=== PATIENT | female | born 1940 | race Caucasian/White ===

== ENCOUNTER 2022-08-09 11:00 | Inpatient (IN) | payer MEDICARE, OTHER, SELFPAY ==
[2022-08-09] VITALS (24 sets, daily range): BP systolic 114–149; BP diastolic 75–106; PULSE 98–162; RESP 18–34; TEMP 36.5–37; O2SAT 91–100
--- NOTE | 2022-08-09 11:21 | ECG_ITS ---
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 Measurements Intervals [place] Rate: 153 P: 0 NV: 0 QRS: -60 QRSD: 98 T: 78 QT: 279 QTc: 446 Interpretive Statements ATRIAL FIBRILLATION WITH RAPID VENTRICULAR RESPONSE WITH ABERRANT CONDUCTION OR VENTRICULAR PREMATURE COMPLEXES LEFT AXIS DEVIATION [QRS AXIS < -30] POSSIBLE ANTERIOR MYOCARDIAL INFARCTION , PROBABLY OLD [30 ms Q WAVE IN V3/V4, OR R < 0.2 mV IN V4] No previous ECG available for comparison Electronically Signed On 08-11-2022 8:01:44 CDT by Bong Stephens M.D. [id number]
--- NOTE | 2022-08-09 11:25 | ED_ITS ---
HPI - General Adult General: Chief complaint: Arrhythmia/Palpitations Stated complaint: low hr, possible uti, sent from [facility] Time Seen by Provider: 08/09/22 11:25 History of Present Illness: Ms. Hahn is a 82-year-old lady with significant past medical history of hypertension, atrial fibrillation on anticoagulation, presenting to the emergency department for evaluation of abnormal heart rate. She notes increased fatigue and generalized weakness for the past few weeks, she denies chest pain or shortness of breath. She thought maybe she had a urinary tract infection given hesitancy and urgency as well as frequency however upon presenting to outside clinic she was found to have hypotension and A-fib with RVR and referred to the ER for further evaluation. She does endorse that she held her metoprolol for 2 days because blood pressure was low and she felt weak and dizzy. Otherwise she has been compliant with her medication regimen including Eliquis. No other specific changes in health, exacerbating, or alleviating factors identified. Onset (ago): week(s) Severity: severe Associated symptoms: Reports palpitations and weakness Review of Systems General: Reports: 10 or more systems reviewed and unremarkable except in HPI and below Card: Reports: palpitations PFS ED PFSH: Medical History Afib REFUGIO (acute kidney injury) Atrial fibrillation with rapid ventricular response Complicated UTI (urinary tract infection) Dementia Hypertension Hypothyroidism Physical Exam Const: COMMON NORMALS: alert GENERAL APPEARANCE: cooperative and well developed HENMT: COMMON NORMALS: normocephalic and atraumatic HEAD & SCALP: normocephalic and atraumatic Eye: COMMON NORMALS: conjunctivae normal CONJUNCTIVA: Yes conjunctivae norm al SCLERA: sclerae normal Neck/C-Spine: COMMON NORMALS: supple GENERAL: Yes trachea midline Resp: COMMON NORMALS: normal respiratory effort and clear to auscultation bilaterally EFFORT & INSPECTION: Yes able to speak in complete sentences AUSCULTATION: clear to auscultation bilaterally Cardio: RATE: tachycardic RHYTHM: abnormal rhythm GI: COMMON NORMALS: Soft to palpation PALPATION: Yes Soft to palpation, Yes Tenderness to palpation present (GI), No Guarding due to palpation present (GI) and No Rigid due to palpation Extremity: GENERAL: Yes normal exam except as noted and No edema Neuro: COMMON NORMALS: moves all extremities SENSORIUM/ORIENTATION: Yes alert and No Orientation impaired Psych: COMMON NORMALS: mental status grossly normal and Normal thought process present THOUGHT PROCESS: Normal thought process present Course Vital Signs: Vital signs: Vital Signs Temperature 97.8 F 08/11/22 12:00 Pulse Rate 93 08/11/22 12:00 Respiratory Rate 22 H 08/11/22 12:00 Blood Pressure 121/87 08/11/22 12:00 Pulse Oximetry 96 08/11/22 12:00 Oxygen Delivery Me thod Room Air 08/11/22 12:00 MDM - General Adult Medical Decision Making 82-year-old lady presenting for abnormal heart rate and low blood pressure. Patient found to be in atrial fibrillation with rapid ventricular response, no STEMI, left axis deviation present. She is nontoxic in appearance and blood pressure is adequate. Labs notable for minimal leukocytosis, normal hemoglobin and platelet count. Metabolic panel with elevated creatinine and evidence of dehydration. Negative range 2-hour delta troponin. BNP is mildly elevated. Hematuria and likely urinary tract infection present. Chest x-ray with no lobar consolidation or pneumothorax. CT abdomen and pelvis notable for cystitis. Patient initially treated with IV fluid bolus and subsequently metoprolol with improvement in heart rate. She was treated with antibiotics. The results of ED evaluation were discussed with the patient including plan for admission due to requirement for level of care not available if discharged to prevent significant worsening/deterioration. Patient agreeable with plan. Discussed with hospitalist service who was agreeable to admit patient. Medical Records I reviewed the patient's medical records. Lab Data I reviewed the patient's lab results. 08/11/22 02:06 08/11/22 02:06 Radiology Impressions Chest X-Ray 08/09/22 11:26 IMPRESSION: Unremarkable frontal portable chest x-ray. Abdomen/Pelvis CT 08/09/22 12:43 IMPRESSION: There is advanced bladder cystitis.Clinical correlation is advised. COMMENTS: Consistent with the [employer]'s Incidental Findings Committee white paper (J Am Gavino Radiol 2018): Any incidental renal lesion less than 1 cm or classified as too small to characterize, or any incidental cystic renal lesion characterized as simple-appearing, is likely benign. No follow-up imaging is recommended for these lesions per consensus recommendations based on imaging criteria. Laboratory Results WBC 10.5 10^3/uL (4.0-10.0) H 08/09/22 11:30 RBC 4.81 10^6/uL (4.1-5.3) 08/09/22 11:30 Hgb 14.8 g/dL (11.5-15.3) 08/09/22 11:30 Hct 46.0 % (37.0-47.0) 08/09/22 11:30 MCV 95.6 fl (81-99) 08/09/22 11:30 MCH 30.8 pg (28.0-34.0) 08/09/22 11:30 MCHC 32.2 g/dL (30.0-36.0) 08/09/22 11:30 RDW 14.8 % (12.1-15.1) 08/09/22 11:30 Plt Count 294 10^3/cmm (130-400) 08/09/22 11:30 MPV 10.0 fL (7.4-10.4) 08/09/22 11:30 Neut % (Auto) 80.0 % 08/09/22 11:30 Lymph % (Auto) 12.4 % 08/09/22 11:30 [place] % (Auto) 6.8 % 08/09/22 11:30 Eos % (Auto) 0.1 % 08/09/22 11:30 Baso % (Auto) 0.2 % 08/09/22 11:30 Neut # (Auto) 8.36 10^3/uL (1.8-7.7) H 08/09/22 11:30 Lymph # (Auto) 1.3 10^3/uL (0.8-4.8) 08/09/22 11:30 [place] # (Auto) 0.7 10^3/uL (0.2-0.9) 08/09/22 11:30 Eos # (Auto) 0.0 10^3/uL (0.0-0.8) 08/09/22 11:30 Baso # (Auto) 0.0 10^3/uL (0.0-0.1) 08/09/22 11:30 Nucleated RBC % (auto) 0 % 08/09/22 11:30 Nucleated RBCs # 0.0 /100WBC 08/09/22 11:30 Sodium 139 mmol/L (136-145) 08/09/22 11:30 Potassium 4.7 mmol/L (3.5-5.1) 08/09/22 11:30 Chloride 100 mmol/L (98-107) 08/09/22 11:30 Carbon Dioxide 23 mmol/L (22-29) 08/09/22 11:30 Anion Gap 20.7 (5-19) H 08/09/22 11:30 BUN 26 mg/dL (8-23) H 08/09/22 11:30 Creatinine 1.5 mg/dL (0.5-0.9) H 08/09/22 11:30 GFR Calculation Not Reportable 08/09/22 11:30 Glucose 168 mg/dL (65-115) H 08/09/22 11:30 Calculated Osmolality 297 mOsm/kg (285-295) H 08/09/22 11:30 Lactic Acid 2.2 mmol/L (0.5-2.2) 08/09/22 11:30 Lactic Acid (Sepsis) 1.6 mmol/L (0.5-2.2) 08/09/22 13:43 Calcium 9.8 mg/dL (8.5-10.5) 08/09/22 11:30 Magnesium 2.2 mg/dL (1.7-2.3) 08/09/22 11:30 Total Bilirubin 0.7 mg/dL (0.15-1.2) 08/09/22 11:30 AST 24 U/L (0-32) 08/09/22 11:30 ALT 19 U/L (0-33) 08/09/22 11:30 Alkaline Phosphatase 88 U/L (35-105) 08/09/22 11:30 Troponin T Baseline 38 ng/L (0-10) H 08/09/22 11:30 Troponin T 120 Minute 32.18 ng/L (0-10) H 08/09/22 13:41 Delta Troponin T -5.82 ABS# (0-10) L 08/09/22 13:41 NT-Pro-B Natriuret Pep 2080 pg/mL (0-450) H 08/09/22 11:30 Total Protein 7.6 g/dL (6.6-8.7) 08/09/22 11:30 Albumin 4.2 g/dL (3.5-5.2) 08/09/22 11:30 Globulin 3.4 g/dL (1.3-4.6) 08/09/22 11:30 Procalcitonin 0.06 ng/mL (0-0.5) 08/09/22 11:30 TSH 1.86 uIU/mL (0.27-4.20) 08/09/22 11:30 Urine Color Brown (Yellow) 08/09/22 12:20 Urine Appearance Cloudy (CLEAR) A 08/09/22 12:20 Urine pH 9 (5-7) H 08/09/22 12:20 Ur Specific [place] 1.015 (1.005-1.030) 08/09/22 12:20 Urine Protein 2+ (Negative) H 08/09/22 12:20 Urine Glucose (UA) Norm (Normal) 08/09/22 12:20 Urine Ketones 1+ (Negative) H 08/09/22 12:20 Urine Blood 3+ (Negative) H 08/09/22 12:20 Urine Nitrate Negative (Negative) 08/09/22 12:20 Urine Bilirubin Neg (Negative) 08/09/22 12:20 Prot Sulfosalicylic Acd Positive (Negative) 08/09/22 12:20 Urine Urobilinogen Norm mg/dL (Negative) 08/09/22 12:20 Ur Leukocyte Esterase 2+ (Negative) H 08/09/22 12:20 Urine RBC Too numerous to cnt /hpf (0-2) H 08/09/22 12:20 Urine WBC 0-4 /hpf (0-5) H 08/09/22 12:20 Ur Squamous Epith Cells 0-4 /hpf (0-5) H 08/09/22 12:20 Triple Phos Crystals 0-4 /hpf H 08/09/22 12:20 Amorphous Sediment Not Reportable 08/09/22 12:20 Urine Bacteria 4+ /hpf (NONE) H 08/09/22 12:20 Ur Random Sodium 97 mmol/L 08/09/22 12:20 Ur Random Potassium 33 mmol/L 08/09/22 12:20 Ur Random Chloride 95 mmol/L 08/09/22 12:20 Urine Creatinine 88 mg/dL (28-217) 08/09/22 12:20 Discharge Plan Discharge Patient Disposition: Placed in Observation Admit Provider: Regulo Meraz Clinical Impression: Complicated UTI (urinary tract infection), REFUGIO (acute kidney injury), Atrial fibrillation with rapid ventricular response Coding Level of Care Code ED Case Management Director for [facility] Sharif
--- NOTE | 2022-08-09 11:26 | XR_ITS ---
WS: [id number] EXAMINATION: XR chest 1V portable [id number] REASON FOR EXAM: afib rvr COMPARISON: None available. ORDER DATE: 08/09/2022 11:26 AM TECHNIQUE: A single, portable frontal chest x-ray was obtained. X-RAY FINDINGS: The lungs are clear. Pleural spaces are clear. No pleural effusions or pneumothorax. Cardiomediastinal silhouette is normal except for atherosclerotic aortic change. No evidence for pulm onary edema. Soft tissue and osseous structures are unremarkable. No tubes or lines are present. XR/XR chest 1V portable [id number] IMPRESSION: Unremarkable frontal portable chest x-ray.
[2022-08-09] MEDS: sodium chloride 0.9% 500 ML IV (11:35)
[2022-08-09 11:36] LABS: Basophils % 0.2 %; Eosinophils % 0.1 %; Hemoglobin 14.8 g/dL (11.5-15.3); Lymphocytes # 1.3 10^3/uL (0.8-4.8); Lymphocytes % 12.4 %; Mean Corpuscular HGB Conc 32.2 g/dL (30.0-36.0); Mean Corpuscular Hemoglobin 30.8 pg (28.0-34.0); Mean Corpuscular Volume 95.6 fl (81-99); Monocytes # 0.7 10^3/uL (0.2-0.9); Monocytes % 6.8 %; Neutrophils # 8.36 10^3/uL (1.8-7.7); Nucleated Red Blood Cells % 0 %; Platelet Count 294 10^3/cmm (130-400); Red Blood Count 4.81 10^6/uL (4.1-5.3); Red Cell Distribution Width 14.8 % (12.1-15.1); White Blood Count 10.5 10^3/uL (4.0-10.0)
--- NOTE | 2022-08-09 11:40 | PC.NURSE ---
Pt hooked up to continuous bedside cardiac monitoring.
[2022-08-09 12:04] LABS: Troponin(5th) Baseline 38 ng/L (0-10)
[2022-08-09 12:06] LABS: Lactic Sepsis W/Reflex 2.2 mmol/L (0.5-2.2)
[2022-08-09 12:12] LABS: Alanine Aminotransferase 19 U/L (0-33); Albumin Level 4.2 g/dL (3.5-5.2); Alkaline Phosphatase 88 U/L (35-105); Anion Gap 20.7 (5-19); Aspartate Amino Transferase 24 U/L (0-32); Blood Urea Nitrogen 26 mg/dL (8-23); Calcium 9.8 mg/dL (8.5-10.5); Carbon Dioxide 23 mmol/L (22-29); Chloride 100 mmol/L (98-107); Globulin 3.4 g/dL (1.3-4.6); Glucose 168 mg/dL (65-115); Magnesium 2.2 mg/dL (1.7-2.3); NT Pro B Type Natriuretic Pept 2080 pg/mL (0-450); Osmolality Calculated 297 mOsm/kg (285-295); Potassium 4.7 mmol/L (3.5-5.1); Reflex Lactate Order REFLEX LACTIC ORDERD; Sodium 139 mmol/L (136-145); Thyroid Stimulating Hormone 1.86 uIU/mL (0.27-4.20); Total Bilirubin 0.7 mg/dL (0.15-1.2); Total Protein 7.6 g/dL (6.6-8.7)
[2022-08-09] MEDS: sodium chloride 0.9% 500 ML 999 ML IV (12:31)
[2022-08-09] MEDS: metoprolol tartrate 1 mg/1 mL SDV 5 mL 5 MG IVP (12:33)
[2022-08-09 12:41] LABS: Add Urine Culture? Yes; Add Urine Microscopic? YES; Bacteria Urine 4+ /hpf; Bilirubin Urine Neg (Negative); Blood Urine 3+ (Negative); Glucose Urine UA Norm (Normal); Ketones Urine 1+ (Negative); Leukocyte Esterase Urine 2+ (Negative); Nitrate Urine Negative (Negative); Protein Urine 2+ (Negative); RBC Urine TOO NUMEROUS TO CNT /hpf (0-2); Specific Gravity, Urine 1.015 (1.005-1.030); Squamous Epithelial Cell Urine 0-4 /hpf (0-5); Sulfosalicylic Acid Urine Positive (Negative); Triple Phosphate Crystal Urine 0-4 /hpf; Urine Appearance Cloudy (CLEAR); Urine Color Brown (Yellow); Urobilinogen Urine Norm (Negative); WBC Urine 0-4 /hpf (0-5); pH Urine 9 (5-7)
--- NOTE | 2022-08-09 12:43 | CTR_ITS ---
PROCEDURE INFORMATION: Exam: CT Abdomen And Pelvis Without Contrast Exam date and time: 08/09/2022 1:05 PM Age: 82 years old Clinical indication: Other: Hematuria; Additional info: Possible tyson, hematuria, ? obstructive nephropathy TECHNIQUE: Imaging protocol: Computed tomography of the abdomen and pelvis without contrast. Radiation optimization: All CT scans at this facility use at least one of these dose optimization techniques: automated exposure control; mA and/or kV adjustment per patient size (includes targeted exams where dose is matched to clinical indication); or iterative reconstruction. REPORTING DATA: Count of CT and Cardiac NM exams in prior 12 months: This patient has received 0 known CTs and 0 known cardiac nuclear medicine studies in the 12 months prior to the current study. COMPARISON: CR XR chest 1V portable [id number] 08/09/2022 11:32 AM RADIATION DOSE METRICS: Total DLP (mGy-cm): 705.91 FINDINGS: Liver: Normal. No mass. Gallbladder and bile ducts: Normal. No calcified stones. No ductal dilation. Pancreas: Normal. No ductal dilation. Spleen: Normal. No splenomegaly. Adrenal glands: There is thickening of the left adrenal gland. Kidneys and ureters: There are bilateral renal cysts. No renal calcification or hydronephrosis. Stomach and bowel: Unremarkable. No obstruction. No mucosal thickening. Appendix: No evidence of appendicitis. Intraperitoneal space: Unremarkable. No free air. No significant fluid collection. Vasculature: Unremarkable. No abdominal aortic aneurysm. Lymph nodes: Unremarkable. No enlarged lymph nodes. Urinary bladder: There is bladder wall thickening with associated inflammatory change. There is an air-fluid level in the bladder. No mass or calcification or bladder wall emphysema. Reproductive: Unremarkable as visualized. Bones/joints: Degenerative change is identified in the spine. There is no evidence for acute fracture or malalignment. Soft tissues: Unremarkable. CT/CT kidney stone [id number] IMPRESSION: There is advanced bladder cystitis.Clinical correlation is advised. COMMENTS: Consistent with the [employer]'s Incidental Findings Committee white paper (J Am Gavino Radiol 2018): Any incidental renal lesion less than 1 cm or classified as too small to characterize, or any incidental cystic renal lesion characterized as simple-appearing, is likely benign. No follow-up imaging is recommended for these lesions per consensus recommendations based on imaging criteria.
[2022-08-09 14:13] LABS: Troponin 5 2HR 32.18 ng/L (0-10)
[2022-08-09 14:14] LABS: Lactic Acid level (Lactate) 1.6 mmol/L (0.5-2.2)
[2022-08-09 14:14] LABS: Troponin 5 2HR Delta -5.82 ABS# (0-10)
[2022-08-09] MEDS: piperacillin-tazobactam 3.375 GM in sodium chloride 0.9% (plus) 50 ML IV (15:40)
--- NOTE | 2022-08-09 15:54 | PC.NURSE ---
Report called to SAPPHIRE Portillo at 1553.
--- NOTE | 2022-08-09 16:06 | PM.HP ---
Providers/Chief Complaint Admitting Physician: Regulo Meraz MD Chief Complaint: low hr, possible uti, sent from [facility] History of Present Illness Britney Hahn is a 82 year old female with past medical history of hypothyroidism, hypertension, A-fib with chronic anticoagulation with Eliquis, dementia who recently moved to this area from outside town. Patient states she has been having some hesitancy along with scant urine for last 2 to 3 days. She feels dehydrated. Last night when she was checking her vitals her blood pressure machine showed a reading of 55 systolic and she did not take her oral meds. She did not take her medications including metoprolol today morning as well. She denies of any nausea vomiting, headache. 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 In the ER she was found to be in A-fib with RVR and given 5 mg of IV metoprolol after which her heart rate settled to low 100s. On examination laying comfortably in bed, dehydrated Review of Systems General: Reports: 10 or more systems reviewed and unremarkable except in HPI and below Const: Denies: fever(s), chills or body aches Eyes: Denies: change in vision, blurry vision or photophobia ENMT: Reports: hoarseness; Denies: throat pain, enlarged tonsils, odynophagia or nasal congestion Card: Denies: chest pain, palpitations, irregular heart rhythm, edema, swelling of feet/ankles, lightheadedness, pre-syncope, dyspnea on exertion or orthopnea Resp: Denies: dyspnea, productive cough, non-productive cough, wheezing, stridor, pain on inspiration, change in phlegm color, hemoptysis or chest congestion GI: Denies: abdominal pain, nausea, vomiting, hematemesis, coffee ground emesis, dysphagia, heartburn, diarrhea, constipation, GI cramping, change in stool character, hematochezia or melena : Denies: flank pain, difficulty voiding, dysuria, urinary frequency, urinary urgency, urinary hesitancy or hematuria Musc: Denies: neck pain, back pain, extremity pain, joint swelling, joint warmth or deformity Neuro: Denies: headache(s), numbness in extremities, weakness in extremities, sensory changes, difficulty walking, frequent falls, dizziness, vertigo, behavioral changes, Slurred speech present or seizure-like activity Psych: Denies: anxiety, depression, suicidal ideation or homicidal ideation Endo: Denies: polyuria, polydipsia, tired all the time, cold intolerance or hot flashes [place]/Lymph: Denies: easy bruising or easy bleeding Medications/Allergies Home Medications Medication Instructions Recorded Confirmed Last Taken Type apixaban 5 mg tablet (Eliquis) 5 mg PO BID 08/09/22 08/09/22 08/08/22 History atorvastatin 20 mg tablet 20 mg PO DAILY 08/09/22 08/09/22 08/08/22 History calcium carbonate 600 mg calcium 600 mg PO BEDTIME 08/09/22 08/09/22 08/08/22 History (1,500 mg) tablet (Calcium) cranberry 500 mg capsule 500 mg PO QAM 08/09/22 08/09/22 08/08/22 History docusate sodium 100 mg capsule 100 mg PO QPM 08/09/22 08/09/22 08/08/22 History (Colace) furosemide 40 mg tablet 40 mg PO QAM 08/09/22 08/09/22 08/08/22 History glucosamine HCl 1,500 mg tablet 1,500 mg PO QAM 08/09/22 08/09/22 08/08/22 History levothyroxine 125 mcg tablet 125 mcg PO QAM 08/09/22 08/09/22 08/08/22 History losartan 25 mg tablet 25 mg PO BEDTIME 08/09/22 08/09/22 08/07/22 History magnesium oxide 400 mg PO QPM 08/09/22 08/09/22 08/08/22 History metoprolol tartrate 50 mg tablet 50 mg PO BID 08/09/22 08/09/22 08/08/22 History multivitamin 1 tab PO QAM 08/09/22 08/09/22 08/08/22 History Allergies Allergy/AdvReac Type Severity Reaction Status Date / Time azithromycin Allergy Unknown Verified 08/09/22 12:53 ciprofloxacin [From Cipro] Allergy algy-unknow Verified 08/09/22 09:33 n PFSH Acute PFSH: Medical History Afib Dementia Hypertension Vitals/I&O/Wt Last Vital Signs Temp 98.0 F 08/09/22 11:20 Pulse 108 H 08/09/22 15:30 Resp 23 H 08/09/22 13:15 BP 131/95 08/09/22 15:30 Pulse Ox 97 08/09/22 15:30 O2 Del Method Room Air 08/09/22 12:02 08/09/22 08/09/22 08/09/22 06:59 14:59 22:59 Intake Total 1000 / 1000 Balance 1000 / 1000 Weight last 48 hrs Weight 90.718 kg Physical Exam Narrative: General: No acute distress, pleasant, AO x3, dehydrated HEENT: PERRLA, pupils bilaterally equal and reactive, pallors not present Chest: Normal vesicular breath sounds, no added sounds, equal good air entry bilaterally CVS: S1-S2 irregularly irregular, no murmurs, no tachycardia, no gallops, no rubs Abdomen: Soft, nontender, no organomegaly, bowel sounds present Neuro: No focal deficits, no facial deformity, AO x3, power 5/5 in all limbs Data 08/09/22 11:30 08/09/22 11:30 Micro: Microbiology 08/09/22 11:47 Blood Culture - Preliminary Blood SPECIMEN COLLECTED 08/09/22 11:40 Blood Culture - Preliminary Blood SPECIMEN COLLECTED A&P Assessment and plan (1) Atrial fibrillation with rapid ventricular response: Chronic. With mildly RVR. Most likely in setting of possible UTI versus dehydration. Normal saline at 75 cc/h for 1 bag. Continue with home dose of Eliquis 5 mg twice daily. Increase home dose of metoprolol to 75 mg twice daily. Check echocardiogram. Will reassess after hydration for additional further medications. (2) REFUGIO (acute kidney injury): REFUGIO versus CKD. Do not have baseline creatinine. Check urine lites, urine creatinine, eosinophils. Urinalysis. CT abdomen pelvis done in the ER negative for urinary obstruction. Monitor BMP daily. IV hydration as above. Medical reconstruction done for nephrotoxic drugs. (3) Complicated UTI (urinary tract infection): With cystitis changes seen in the CT scan abdomen pelvis. Check blood culture, urine culture. IV ceftriaxone 1 g daily (4) Hypothyroidism: Continue with home dose of levothyroxine. Check TSH. (5) Hypertension: Goal blood pressure less than 140/90 mmHg. Continue with home metoprolol at a higher dose. Hold off on losartan given possible REFUGIO. (6) Dementia: Plan Full code. Cardiac diet. Eliquis will suffice as DVT prophylaxis. Protonix OPD prophylaxis. Attestations Medical Necessity Statement*: Admission for more than 2 midnights for management of A-fib with RVR in setting of dehydration and UTI along with REFUGIO Diagnoses Atrial fibrillation with rapid ventricular response I48.91 REFUGIO (acute kidney injury) N17.9 Complicated UTI (urinary tract infection) N39.0 Hypothyroidism E03.9 Hypertension I10 Dementia F03.90
[2022-08-09 16:39] LABS: Procalcitonin 0.06 ng/mL (0-0.5)
[2022-08-09] MEDS: metoprolol tartrate 50 mg Tablet 75 MG PO (16:49)
[2022-08-09] MEDS: apixaban 5 mg Tablet PO (16:51)
[2022-08-09] MEDS: docusate sodium 100 mg Capsule PO (16:51)
[2022-08-09] MEDS: sodium chloride 0.9% 1,000 ML 75 ML IV (16:52)
[2022-08-09] MEDS: cefTRIAXone 1,000 MG in sodium chloride 0.9% (plus) 50 ML 100 MG IV (16:52)
[2022-08-09 17:09] LABS: Potassium, Radom Urine 33 mmol/L; Urine Creatinine 88 mg/dL (28-217); Urine Random Chloride 95 mmol/L; Urine Random Sodium 97 mmol/L
--- NOTE | 2022-08-09 18:06 | ECG_ITS ---
[facility] Test Date: 2022-08-09 Pat Name: Britney Hahn Department: Room: 112 Gender: Female Can Carrier: : 1940 Requested By: Mil Houston Order Number: [id number] Luma MD: Bong Stephens M.D. Measurements Intervals [place] Rate: 100 P: 0 RI: 0 QRS: -57 QRSD: 89 T: 41 QT: 351 QTc: 453 Interpretive Statements ATRIAL FIBRILLATION WITH RAPID VENTRICULAR RESPONSE LEFT AXIS DEVIATION [QRS AXIS < -30] POSSIBLE ANTERIOR MYOCARDIAL INFARCTION , PROBABLY OLD [30 ms Q WAVE IN V3/V4, OR R < 0.2 mV IN V4] Compared to ECG 08/09/2022 11:21:47 Aberrant conduction of supraventricular beat(s) no longer present Ventricular premature complex(es) no longer present Myocardial infarct finding still present Electronically Signed On 08-11-2022 8:03:34 CDT by Bong Stephens M.D. [id number]
[2022-08-09 18:13] LABS: Troponin 5 6HR 34.15 ng/L (0-10)
[2022-08-09 18:30] LABS: Troponin 5 6HR Delta -3.85 ng/L (0-12)
[2022-08-09 20:17] LABS: Eosinophil Urine No Eosinophils Seen
[2022-08-09 20:21] LABS: Urine Eosinophil Count 0 (0-0)
[2022-08-10] VITALS (150 sets, daily range): BP systolic 122–134; BP diastolic 86–102; PULSE 81–156; RESP 16–29; TEMP 36.3–36.9; O2SAT 83–99
[2022-08-10 03:58] LABS: Basophils % 0.3 %; Eosinophils # 0.1 10^3/uL (0.0-0.8); Eosinophils % 0.6 %; Hematocrit 43.7 % (37.0-47.0); Lymphocytes # 1.7 10^3/uL (0.8-4.8); Lymphocytes % 17.2 %; Mean Corpuscular Volume 96.9 fl (81-99); Mean Platelet Volume 9.7 fL (7.4-10.4); Monocytes # 0.8 10^3/uL (0.2-0.9); Monocytes % 8.3 %; Neutrophils # 7.18 10^3/uL (1.8-7.7); Neutrophils % 73.3 %; Nucleated Red Blood Cells % 0 %; Platelet Count 269 10^3/cmm (130-400); Red Blood Count 4.51 10^6/uL (4.1-5.3); Red Cell Distribution Width 14.8 % (12.1-15.1); White Blood Count 9.8 10^3/uL (4.0-10.0)
[2022-08-10 04:11] LABS: Estmated Average Glucose 143; Hemoglobin A1C 6.6 % (4.0-6.0)
[2022-08-10 04:17] LABS: Alanine Aminotransferase 16 U/L (0-33); Albumin Level 3.9 g/dL (3.5-5.2); Alkaline Phosphatase 72 U/L (35-105); Anion Gap 14.7 (5-19); Aspartate Amino Transferase 18 U/L (0-32); Blood Urea Nitrogen 23 mg/dL (8-23); Calcium 8.8 mg/dL (8.5-10.5); Carbon Dioxide 23 mmol/L (22-29); Chloride 107 mmol/L (98-107); Glucose 125 mg/dL (65-115); Magnesium 2.1 mg/dL (1.7-2.3); Osmolality Calculated 295 mOsm/kg (285-295); Phosphorus 3.4 mg/dL (2.5-4.5); Potassium 4.7 mmol/L (3.5-5.1); Sodium 140 mmol/L (136-145); Total Bilirubin 0.6 mg/dL (0.15-1.2); Total Protein 6.9 g/dL (6.6-8.7)
[2022-08-10 04:19] LABS: Chol HDL Ratio 2.78 mg/dL (0.0-4.40); Cholesterol 128 mg/dL (0-200); HDL Cholesterol 46 mg/dL (60-100); LDL Cholesterol Calculated 69 mg/dL (50-129); Triglycerides 66 mg/dL (0-150)
[2022-08-10] MEDS: sodium chloride 0.9% 1,000 ML 75 ML IV ×2 (04:58→18:36)
[2022-08-10] MEDS: levothyroxine 125 mcg Tablet PO (04:59)
[2022-08-10] MEDS: apixaban 5 mg Tablet PO ×2 (09:02→18:00)
[2022-08-10] MEDS: metoprolol tartrate 50 mg Tablet 75 MG PO ×2 (09:03→18:00)
[2022-08-10] MEDS: pantoprazole DR 40 mg Tablet PO (09:04)
[2022-08-10] MEDS: docusate sodium 100 mg Capsule PO ×2 (09:04→18:00)
--- NOTE | 2022-08-10 14:49 | PC.NURSE ---
Patient's urine remains bright red.
--- NOTE | 2022-08-10 17:37 | PM.PN ---
Subjective Subjective: Patient reports she is feeling a little bit better. She has not been out of bed except for restroom. Remains in a-fib with RVR. Reports intermittent dizziness. Denies chest pain, fever, or chills. Medications: Reviewed: Yes Vitals/I&O/Wt Last Vital Signs Temp 98.3 F 08/10/22 12:00 Pulse 101 H 08/10/22 14:38 Resp 23 H 08/10/22 12:00 BP 122/86 08/10/22 12:00 Pulse Ox 97 08/10/22 12:00 O2 Del Method Room Air 08/10/22 12:00 08/10/22 08/10/22 08/10/22 06:59 14:59 22:59 Intake Total 1007.5 / 2307.5 240 / 240 Output Total 400 / 900 Balance 607.5 / 1407.5 240 / 240 Weight last 48 hrs Weight 92.306 kg Weight 90.718 kg Physical Exam Narrative: General: Patient is awake and alert. Head: Normocephalic. Atraumatic. EOM intact. Neck: No JVD. Cardiovascular: No gallops. No murmurs. Tachycardic. Irregular rhythm. Lungs: Clear to auscultation, no use of accessory muscles, no crackles or wheezes. Skin: No jaundice. No rashes. Abdomen: Soft. Not distended. Normal bowel sounds. Extremities: No cyanosis or clubbing. Musculoskeletal: Normal muscular development. Neurological: No myoclonus. Moves all 4 extremities. Data 08/10/22 03:45 08/10/22 03:45 Micro: Microbiology 08/09/22 11:47 Blood Culture - Preliminary Blood NEGATIVE TO DATE 08/09/22 11:40 Blood Culture - Preliminary Blood NEGATIVE TO DATE 08/09/22 12:20 Urine Culture - Preliminary Urine,Clean Catch Gram Negative Rods A&P Assessment and plan (1) Atrial fibrillation with rapid ventricular response: Chronic afib c/b RVR HR remains poorly controlled Trigger likely UTI vs dehydration Status post IVF Continue apixaban Continue with incraesed dose of Lopressor, may need further adjusting Encouraged out of bed and ambulation to monitor HR Echocardiogram is pending Monitor electrolytes Telemetry monitoring (2) REFUGIO (acute kidney injury): REFUGIO, prerenal Improved with IVF Encourage oral intake Repeat labs in AM (3) Complicated UTI (urinary tract infection): Acute complicated UTI Imaging reviewed, notable for cystitis changes Ux w/ GNR BCx pending Continue Rocephin (4) Hypothyroidism: Continue Synthroid (5) Hypertension: Losartan held due to REFUGIO Continue to monitor (6) Dementia: Patient alert and oriented Plan DVT ppx: Apixaban Code: Full Code Attestations Medical Necessity Statement*: Patient's heart rate remains uncontrolled in the setting of a-fib with RVR and still waiting urine culture to guide therapy for which patient requiring on going hospitalization for telemetry, IV abx, cardiac medication adjustment, serial labs, and echo. Coding Level of Care Code Acute Code for Chg Fwd Diagnoses Atrial fibrillation with rapid ventricular response I48.91 REFUGIO (acute kidney injury) N17.9 Complicated UTI (urinary tract infection) N39.0 Hypothyroidism E03.9 Hypertension I10 Dementia F03.90
[2022-08-10] MEDS: cefTRIAXone 1,000 MG in sodium chloride 0.9% (plus) 50 ML 100 MG IV (17:59)
[2022-08-11] VITALS (57 sets, daily range): BP systolic 108–131; BP diastolic 87–95; PULSE 79–128; RESP 9–26; TEMP 36.6; O2SAT 94–99
[2022-08-11 02:46] LABS: Basophils % 0.4 %; Eosinophils # 0.1 10^3/uL (0.0-0.8); Eosinophils % 1.4 %; Hematocrit 40.3 % (37.0-47.0); Hemoglobin 12.6 g/dL (11.5-15.3); Lymphocytes # 1.6 10^3/uL (0.8-4.8); Lymphocytes % 20.4 %; Mean Corpuscular HGB Conc 31.3 g/dL (30.0-36.0); Mean Corpuscular Hemoglobin 30.6 pg (28.0-34.0); Mean Corpuscular Volume 97.8 fl (81-99); Mean Platelet Volume 10.3 fL (7.4-10.4); Monocytes # 0.8 10^3/uL (0.2-0.9); Monocytes % 10.1 %; Neutrophils # 5.31 10^3/uL (1.8-7.7); Neutrophils % 67.2 %; Nucleated Red Blood Cells % 0 %; Platelet Count 235 10^3/cmm (130-400); Red Blood Count 4.12 10^6/uL (4.1-5.3); Red Cell Distribution Width 14.8 % (12.1-15.1); White Blood Count 7.9 10^3/uL (4.0-10.0)
[2022-08-11 03:05] LABS: Alanine Aminotransferase 16 U/L (0-33); Albumin Level 3.2 g/dL (3.5-5.2); Alkaline Phosphatase 66 U/L (35-105); Aspartate Amino Transferase 18 U/L (0-32); Blood Urea Nitrogen 18 mg/dL (8-23); Calcium 8.5 mg/dL (8.5-10.5); Carbon Dioxide 22 mmol/L (22-29); Chloride 107 mmol/L (98-107); Globulin 2.7 g/dL (1.3-4.6); Glucose 109 mg/dL (65-115); Osmolality Calculated 290 mOsm/kg (285-295); Phosphorus 3.1 mg/dL (2.5-4.5); Sodium 139 mmol/L (136-145); Total Bilirubin 0.4 mg/dL (0.15-1.2); Total Protein 5.9 g/dL (6.6-8.7)
[2022-08-11 03:06] LABS: Creatinine Clr Calc Pharmacy 47.7296
[2022-08-11] MEDS: levothyroxine 125 mcg Tablet PO (05:23)
[2022-08-11] MEDS: sodium chloride 0.9% 1,000 ML 75 ML IV (07:42)
[2022-08-11] MEDS: metoprolol tartrate 50 mg Tablet 75 MG PO (08:38)
[2022-08-11] MEDS: apixaban 5 mg Tablet PO (08:38)
[2022-08-11] MEDS: pantoprazole DR 40 mg Tablet PO (08:38)
--- NOTE | 2022-08-11 14:49 | PC.NURSE ---
Iv removed at 14:00, tolerated well. Vitals WNL. Patient and daughter given verbal and written discharge education on medications and appointments made, patient verbalized understanding. Patient taken to parking lot via wheel chair, and left facility with daughter at 14:20.
--- NOTE | 2022-08-11 17:27 | PM.DCS ---
Discharge Providers Date of Admission: 08/09/22 16:12 Date of Discharge: August 11, 2022 Attending Provider at Admission: Regulo Meraz MD Attending Provider at Discharge: Rob oGmez MD Diagnoses at Discharge Discharge Diagnosis (1) Atrial fibrillation with rapid ventricular response: Status: Acute (2) REFUGIO (acute kidney injury): Status: Acute (3) Complicated UTI (urinary tract infection): Status: Acute (4) Hypothyroidism: Status: Acute (5) Hypertension: Status: Acute (6) Dementia: Status: Acute Reason for Visit Reason for Visit: low hr, possible uti, sent from [facility] Hospital Course Hospital Course HPI: Regulo Meraz MD Britney Hahn is a 82 year old female with past medical history of hypothyroidism, hypertension, A-fib with chronic anticoagulation with Eliquis, dementia who recently moved [place] this area from [place] town. Patient states she has been having some hesitancy along with scant urine for last 2 to 3 days.? She feels dehydrated.? Last night when she was checking her vitals her blood pressure machine showed a reading of 55 systolic and she did not take her oral meds.? She did not take her medications including metoprolol today morning as well.? She denies of any nausea vomiting, headache.? States for last couple of days since moving to [place] she has been having nurse sitter dizziness on waking up. In the ER she was found to be in A-fib with RVR and given 5 mg of IV metoprolol after which her heart rate settled to low 100s.? On examination laying comfortably in bed, dehydrated. Hospital course: Patient was admitted for the management of : A-fib with RVR, possibly secondary to dehydration and UTI, as well as REFUGIO, during the hospital stay she was kept on, IV hydration, antibiotics, urine culture grew E. coli, pansensitive, she was on ceftriaxone during the hospital stay, has been discharged on, p.o. Augmentin for another 5 days, for A-fib with RVR, home dose of metoprolol has been increased to 75 mg twice daily, currently she was on 50 mg p.o. twice daily at home, she is on Eliquis for anticoagulation, REFUGIO likely prerenal, resolved with IV hydration, losartan and Lasix has been kept on hold for a week, after which it can be resumed, patient was also having hematuria during the hospital stay possibly secondary to UTI, could be some contribution from anticoagulation, hematuria was improving, she has been advised to recheck urine analysis in 2 weeks, and follow-up with her primary care physician, overall she responded well to above medical management and is being discharged in stable condition to home. She is scheduled to follow-up with her primary care physician on August 29. Physical Exam Const: COMMON NORMALS: patient oriented x3 HENMT: COMMON NORMALS: normocephalic and atraumatic HEAD & SCALP: normocephalic and atraumatic Resp: COMMON NORMALS: clear to auscultation bilaterally AUSCULTATION: clear to auscultation bilaterally Cardio: COMMON NORMALS: Peripheral pulses 2+ throughout PERIPHERAL PULSES: Peripheral pulses 2+ throughout OTHER: Irregularly irregular rhythm, S1-S2 variable intensity GI: COMMON NORMALS: Normal to inspection, nondistended, normoactive bowel sounds present, Soft to palpation, non-tender, No hepatosplenomegaly present and no masses AUSCULTATION: Yes normoactive bowel sounds PALPATION: Yes Soft to palpation and Yes No hepatosplenomegaly present RECTAL EXAM: deferred Extremity: COMMON NORMALS: no clubbing, cyanosis or edema and no pedal edema Neuro: COMMON NORMALS: patient oriented x3 Discharge Data Studies Completed and Pending Completed Studies During Hospitalization Category Date Time Status CT abdomen renal stone [CT kidney stone [id number]] Stat Cat Scan 08/09/22 12:43 Completed XR chest 1V portable [id number] Stat Exams 08/09/22 11:26 Completed Pending at discharge Category Date Time Status Blood Culture Stat Lab 08/09/22 11:47 Results Radiology Impressions Chest X-Ray 08/09/22 11:26 IMPRESSION: Unremarkable frontal portable chest x-ray. Abdomen/Pelvis CT 08/09/22 12:43 IMPRESSION: There is advanced bladder cystitis.Clinical correlation is advised. COMMENTS: Consistent with the [employer]'s Incidental Findings Committee white paper (J Am Gavino Radiol 2018): Any incidental renal lesion less than 1 cm or classified as too small to characterize, or any incidental cystic renal lesion characterized as simple-appearing, is likely benign. No follow-up imaging is recommended for these lesions per consensus recommendations based on imaging criteria. Laboratory Results WBC 7.9 10^3/uL (4.0-10.0) 08/11/22 02:06 RBC 4.12 10^6/uL (4.1-5.3) 08/11/22 02:06 Hgb 12.6 g/dL (11.5-15.3) 08/11/22 02:06 Hct 40.3 % (37.0-47.0) 08/11/22 02:06 MCV 97.8 fl (81-99) 08/11/22 02:06 MCH 30.6 pg (28.0-34.0) 08/11/22 02:06 MCHC 31.3 g/dL (30.0-36.0) 08/11/22 02:06 RDW 14.8 % (12.1-15.1) 08/11/22 02:06 Plt Count 235 10^3/cmm (130-400) 08/11/22 02:06 MPV 10.3 fL (7.4-10.4) 08/11/22 02:06 Neut % (Auto) 67.2 % 08/11/22 02:06 Lymph % (Auto) 20.4 % 08/11/22 02:06 [place] % (Auto) 10.1 % 08/11/22 02:06 Eos % (Auto) 1.4 % 08/11/22 02:06 Baso % (Auto) 0.4 % 08/11/22 02:06 Neut # (Auto) 5.31 10^3/uL (1.8-7.7) 08/11/22 02:06 Lymph # (Auto) 1.6 10^3/uL (0.8-4.8) 08/11/22 02:06 [place] # (Auto) 0.8 10^3/uL (0.2-0.9) 08/11/22 02:06 Eos # (Auto) 0.1 10^3/uL (0.0-0.8) 08/11/22 02:06 Baso # (Auto) 0.0 10^3/uL (0.0-0.1) 08/11/22 02:06 Nucleated RBC % (auto) 0 % 08/11/22 02:06 Nucleated RBCs # 0.0 /100WBC 08/11/22 02:06 Sodium 139 mmol/L (136-145) 08/11/22 02:06 Potassium 4.0 mmol/L (3.5-5.1) 08/11/22 02:06 Chloride 107 mmol/L (98-107) 08/11/22 02:06 Carbon Dioxide 22 mmol/L (22-29) 08/11/22 02:06 Anion Gap 14.0 (5-19) 08/11/22 02:06 BUN 18 mg/dL (8-23) 08/11/22 02:06 Creatinine 1.1 mg/dL (0.5-0.9) H 08/11/22 02:06 GFR Calculation Not Reportable 08/11/22 02:06 Glucose 109 mg/dL (65-115) 08/11/22 02:06 Estimat Average Glucose 143 08/10/22 03:45 Hemoglobin A1c 6.6 % (4.0-6.0) H 08/10/22 03:45 Calculated Osmolality 290 mOsm/kg (285-295) 08/11/22 02:06 Lactic Acid 2.2 mmol/L (0.5-2.2) 08/09/22 11:30 Lactic Acid (Sepsis) 1.6 mmol/L (0.5-2.2) 08/09/22 13:43 Calcium 8.5 mg/dL (8.5-10.5) 08/11/22 02:06 Phosphorus 3.1 mg/dL (2.5-4.5) 08/11/22 02:06 Magnesium 2.0 mg/dL (1.7-2.3) 08/11/22 02:06 Total Bilirubin 0.4 mg/dL (0.15-1.2) 08/11/22 02:06 AST 18 U/L (0-32) 08/11/22 02:06 ALT 16 U/L (0-33) 08/11/22 02:06 Alkaline Phosphatase 66 U/L (35-105) 08/11/22 02:06 Troponin T Baseline 38 ng/L (0-10) H 08/09/22 11:30 Troponin T 120 Minute 32.18 ng/L (0-10) H 08/09/22 13:41 Delta Troponin T -5.82 ABS# (0-10) L 08/09/22 13:41 Troponin T Hi Sens 6Hr 34.15 ng/L (0-10) H 08/09/22 17:39 Troponin T Hi Sens 6Hr Delta -3.85 ng/L (0-12) L 08/09/22 17:39 NT-Pro-B Natriuret Pep 2080 pg/mL (0-450) H 08/09/22 11:30 Total Protein 5.9 g/dL (6.6-8.7) L 08/11/22 02:06 Albumin 3.2 g/dL (3.5-5.2) L 08/11/22 02:06 Globulin 2.7 g/dL (1.3-4.6) 08/11/22 02:06 Triglycerides 66 mg/dL (0-150) 08/10/22 03:45 Cholesterol 128 mg/dL (0-200) 08/10/22 03:45 LDL Cholesterol, Calc 69 mg/dL (50-129) 08/10/22 03:45 HDL Cholesterol 46 mg/dL (60-100) L 08/10/22 03:45 LDL/HDL Ratio 1.50 RATIO (0.00-3.22) 08/10/22 03:45 Cholesterol/HDL Ratio 2.78 mg/dL (0.0-4.40) 08/10/22 03:45 Procalcitonin 0.06 ng/mL (0-0.5) 08/09/22 11:30 TSH 1.86 uIU/mL (0.27-4.20) 08/09/22 11:30 Urine Color Brown (Yellow) 08/09/22 12:20 Urine Appearance Cloudy (CLEAR) A 08/09/22 12:20 Urine pH 9 (5-7) H 08/09/22 12:20 Ur Specific [place] 1.015 (1.005-1.030) 08/09/22 12:20 Urine Protein 2+ (Negative) H 08/09/22 12:20 Urine Glucose (UA) Norm (Normal) 08/09/22 12:20 Urine Ketones 1+ (Negative) H 08/09/22 12:20 Urine Blood 3+ (Negative) H 08/09/22 12:20 Urine Nitrate Negative (Negative) 08/09/22 12:20 Urine Bilirubin Neg (Negative) 08/09/22 12:20 Prot Sulfosalicylic Acd Positive (Negative) 08/09/22 12:20 Urine Urobilinogen Norm mg/dL (Negative) 08/09/22 12:20 Ur Leukocyte Esterase 2+ (Negative) H 08/09/22 12:20 Urine RBC Too numerous to cnt /hpf (0-2) H 08/09/22 12:20 Urine WBC 0-4 /hpf (0-5) H 08/09/22 12:20 Ur Eosinophil Smear 0 (0-0) 08/09/22 19:00 Ur Squamous Epith Cells 0-4 /hpf (0-5) H 08/09/22 12:20 Triple Phos Crystals 0-4 /hpf H 08/09/22 12:20 Amorphous Sediment Not Reportable 08/09/22 12:20 Urine Bacteria 4+ /hpf (NONE) H 08/09/22 12:20 Urine Eosinophils No eosinophils seen 08/09/22 19:00 Ur Random Sodium 97 mmol/L 08/09/22 12:20 Ur Random Potassium 33 mmol/L 08/09/22 12:20 Ur Random Chloride 95 mmol/L 08/09/22 12:20 Urine Creatinine 88 mg/dL (28-217) 08/09/22 12:20 Vitals Last Vital Signs Temp 97.8 F 08/11/22 12:00 Pulse 93 08/11/22 12:00 Resp 22 H 08/11/22 12:00 BP 121/87 08/11/22 12:00 Pulse Ox 96 08/11/22 12:00 O2 Del Method Room Air 08/11/22 12:00 Discharge Plan Discharge Patient Disposition: Home Condition: Stable Prescriptions: New Augmentin 500-125 mg tablet 1 tab PO BID Qty: 10 0RF Continued docusate sodium [Colace] 100 mg capsule 100 mg PO QPM Eliquis 5 mg tablet 5 mg PO BID glucosamine HCl 1,500 mg tablet 1,500 mg PO QAM Rx Instructions: administer with a meal atorvastatin 20 mg tablet 20 mg PO DAILY multivitamin Tablet 1 tab PO QAM Calcium 600 600 mg calcium (1,500 mg) Tablet 600 mg PO BEDTIME levothyroxine 125 mcg tablet 125 mcg PO QAM cranberry 500 mg Capsule 500 mg PO QAM magnesium oxide 400 mg magnesium Tablet 400 mg PO QPM Changed metoprolol tartrate 50 mg tablet 75 mg PO BID 30 Days Qty: 0 0RF Held furosemide 40 mg tablet 40 mg PO QAM Hold Instructions: Resume on 08/18/22. losartan 25 mg tablet 25 mg PO BEDTIME Hold Instructions: Resume on 08/18/22. Discharge Orders: Discharge Order (Routine); Ordered 08/11/22 Ordered By: Rob Gomez Referrals: Andrés Gatica MD [Physician] - 08/29/22 3:00 pm Patient Instructions: Amoxicillin/Clavulanate Potassium (By mouth) (Augmentin, Augmentin..., A-fib (Atrial Fibrillation) (DC), Acute Kidney Injury (DC), Urinary Tract Infection in Women (DC), Hypothyroidism (DC), Opioid Safety Discharge Attestations Time Spent in Discharge Care*: greater than 30 min Quality Metrics Clinical Quality Measures [ No reported AMI, CVA or VTE this stay] Coding Level of Care Code Acute Code for Chg Fwd Diagnoses Atrial fibrillation with rapid ventricular response I48.91 REFUGIO (acute kidney injury) N17.9 Complicated UTI (urinary tract infection) N39.0 Hypothyroidism E03.9 Hypertension I10 Dementia F03.90
== END 2022-08-11 14:11 | disposition home or self-care (01) | DRG 683 ==
LOC: ER 15:23 → CSU 16:24
PROVIDERS: Student in an Organized Health Care Education/Training Program; Admitting Provider Student in an Organized Health Care Education/Training Program; Emergency Provider Emergency Medicine; Visit Provider Internal Medicine
DX: N17.9 Acute kidney failure, unspecified (principal); I48.20 Chronic atrial fibrillation, unspecified; E03.9 Hypothyroidism, unspecified; I10 Essential (primary) hypertension; Z79.01 Long term (current) use of anticoagulants; F03.90 Unspecified dementia, unspecified severity, without behavioral disturbance, psychotic disturbance, mood disturbance, and anxiety; E86.0 Dehydration; N30.91 Cystitis, unspecified with hematuria; B96.20 Unspecified Escherichia coli [E. coli] as the cause of diseases classified elsewhere
CPT/HCPCS: 36415; 71045; 74176; 80053; 80061; 81001; 82436; 82570; 83036; 83605; 83735; 83880; 84100; 84133; 84145; 84300; 84443; 84484; 85025; 85999; 87040; 87077; 87086; 87186; 93005; 96365; 96375; 99285; A9270; J0696; J2543; J3490; J7030; J7040

== ENCOUNTER → 2022-08-25 13:56 | Outpatient (BNVA) | payer MEDICARE, OTHER, SELFPAY | PROVIDERS: Visit Provider Nurse Practitioner Family | DX: R53.83 Other fatigue (principal); I95.9 Hypotension, unspecified; R31.9 Hematuria, unspecified; I48.0 Paroxysmal atrial fibrillation | CPT/HCPCS: 81000; 87086 ==

== ENCOUNTER → 2023-06-05 09:34 | Outpatient (BNVA) | payer MEDICARE, OTHER, SELFPAY | PROVIDERS: PCP Family Medicine; Visit Provider Emergency Medicine | DX: R30.0 Dysuria (principal) | CPT/HCPCS: 81000; 87086 ==